=== PATIENT | male | born 1970 | race African-American/Black ===

== ENCOUNTER 2023-10-15 10:26 | Outpatient (AMB) | payer OTHER, SELFPAY ==
[2023-10-15 10:56] VITALS: BP 110/70; PULSE 92; BMI 35.5
--- NOTE | 2023-10-15 10:56 | HO.NEPHOV_ITS ---
HPI HPI Comments History of Present Illness Details Mr. Rwoe has end-stage renal disease and usually gets hemodialysis in [facility] every Saturday. His blood sugars are not optimally controlled. His blood pressure has been labile but better. His inter dialytic weight gain is better. He does not have any significant urine output. He has diastolic dysfunction. He denies any chest pain, shortness of breath, proximal nocturnal dyspnea, orthopnea or pedal edema. He has not lost any significant weight. He claims to be compliant with his medications. He had severe constipation in the past but is being regulated with laxatives. 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 He is keen to get into transplant list. [facility] Medical History (Updated 10/15/23 @ 13:21 by Colten Jaquez MD) Adenocarcinoma in adenomatous polyp Dialysis patient Surgical History (Updated 10/15/23 @ 10:59 by Lora Osorio MA) History of hand surgery History of abdominal surgery Social History (Updated 10/15/23 @ 10:59 by Lora Osorio MA) Alcohol intake: never Patient Tobacco Use Status: Never used Tobacco Use of substances other than those prescribed or required for medical reasons: No Vital Signs 10/15/23 10:56 Height 5 ft 11 in Weight 254 lb 6 oz BMI 35.5 BP 110/70 Blood Pressure Location Rt brachial Position Sitting Pulse 92 Pulse Source Pulse Oximeter Physical Exam Vital Signs: Last Vital Signs Pulse 92 10/15/23 10:56 BP 110/70 10/15/23 10:56 BMI result Body Mass Index 35.5 Const General: comfortable and no acute distress Orientation/consciousness: patient oriented x3 HEENT Head: Yes normocephalic Mouth: Normal oral and palatal mucosa present Eyes EOM: EOMs intact bilaterally Neck Neck: Yes supple Resp Auscultation: clear to auscultation bilaterally Cardio Jugular venous distension: no JVD Rate: regular rate GI Palpation (GI): Soft to palpation Auscultation: normal bowel sounds General: Yes no CVA tenderness Back/Spine/Pelvis Back: no CVA tenderness Skin General skin exam: no rashes or lesions noted Neuro General: patient oriented x3 and moves all extremities Extrem General: Yes no pedal edema Assessment & Plan Assessment & Plan (1) Anemia in chronic kidney disease: Code(s): N18.9 - Chronic kidney disease, unspecified; D63.1 - Anemia in chronic kidney disease Qualifiers: Chronic kidney disease stage: on chronic dialysis Qualified Code(s): N18.6 - End stage renal disease; D63.1 - Anemia in chronic kidney disease; Z99.2 - Dependence on renal dialysis (2) Dialysis patient: Code(s): Z99.2 - Dependence on renal dialysis (3) Secondary hyperparathyroidism (of renal origin): Code(s): N25.81 - Secondary hyperparathyroidism of renal origin (4) Hypertension: Code(s): I10 - Essential (primary) hypertension Qualifiers: Hypertension type: primary hypertension Qualified Code(s): I10 - Essential (primary) hypertension Plan Mr Rowe has end-stage renal disease and is currently on hemodialysis on Saturday. His dry weight has been brought down. He does not have any urine output. He should cut back on his liquid intake. He is in the dialytic weight gain has been acceptable. He needs to lose significant weight. His blood sugar control is suboptimal. Blood pressure control is better. He needs to be more active. He had an adenocarcinoma in a polyp in the transverse colon. He underwent surveillance colonoscopies which had been negative to date. He gets Mircera in the dialysis unit . He should take phosphorus binders 3 times a day with meals. He also is on activated vitamin-D. I have asked Babita Reardon greenhouse or nursery transplanter in [facility] to look at the status of his candidacy to get into [facility] transplant waiting list. All his questions and concerns were addressed. Time spent retrieving data, documentation and patient encounter 27 minutes. Coding Level of Care Code Est Pt Level 3 (15332) Diagnoses Anemia in chronic kidney disease, on chronic dialysis N18.6; D63.1; Z99.2 Chronic kidney disease stage: on chronic dialysis Dialysis patient Z99.2 Secondary hyperparathyroidism (of renal origin) N25.81 Primary hypertension I10 Hypertension type: primary hypertension
== END 2023-10-15 11:26 | disposition home or self-care (01) ==
PROVIDERS: PCP Internal Medicine; Visit Provider Internal Medicine Nephrology
DX: N18.6 End stage renal disease (principal); N25.81 Secondary hyperparathyroidism of renal origin; Z99.2 Dependence on renal dialysis; I12.0 Hypertensive chronic kidney disease with stage 5 chronic kidney disease or end stage renal disease; D63.1 Anemia in chronic kidney disease
CPT/HCPCS: 99213

== ENCOUNTER → 2023-10-15 10:26 | Outpatient (BNVA) | payer OTHER, SELFPAY | PROVIDERS: PCP Internal Medicine; Visit Provider Internal Medicine Nephrology | DX: I12.9 Hypertensive chronic kidney disease with stage 1 through stage 4 chronic kidney disease, or unspecified chronic kidney disease (principal); N18.6 End stage renal disease; N25.81 Secondary hyperparathyroidism of renal origin; D63.1 Anemia in chronic kidney disease; Z99.2 Dependence on renal dialysis | CPT/HCPCS: 99212 ==

== ENCOUNTER → 2023-11-18 | Outpatient (BNV) | payer OTHER, SELFPAY | PROVIDERS: PCP Internal Medicine; Visit Provider Internal Medicine Nephrology | DX: N18.6 End stage renal disease (principal) | CPT/HCPCS: 90961 ==

== ENCOUNTER → 2023-12-19 | Outpatient (BNV) | payer OTHER, SELFPAY | PROVIDERS: PCP Internal Medicine; Visit Provider Internal Medicine Nephrology | DX: N18.6 End stage renal disease (principal) | CPT/HCPCS: 90961 ==

== ENCOUNTER 2024-01-02 09:53 | Outpatient (AMB) | payer OTHER, SELFPAY ==
[2024-01-02 10:32] VITALS: BP 160/80; PULSE 86; O2SAT 98; BMI 36.0
--- NOTE | 2024-01-02 10:32 | HO.NEPHOV ---
HPI HPI Comments History of Present Illness Details Mr. Rowe has end-stage renal disease and usually gets hemodialysis in [facility] every Saturday. His blood sugars are not optimally controlled. His blood pressure has been labile but better. His inter dialytic weight gain is better. He does not have any significant urine output. He has diastolic dysfunction. He denies any chest pain, shortness of breath, proximal nocturnal dyspnea, orthopnea or pedal edema. He has not lost any significant weight. He claims to be compliant with his medications. He had severe constipation in the past but is being regulated with laxatives. 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 He is keen to get into transplant list. 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0 Const General: comfortable and no acute distress Orientation/consciousness: patient oriented x3 HEENT Head: Yes normocephalic Mouth: Normal oral and palatal mucosa present Eyes EOM: EOMs intact bilaterally Neck Neck: Yes supple Resp Auscultation: clear to auscultation bilaterally Cardio Jugular venous distension: no JVD Rate: regular rate GI Palpation (GI): Soft to palpation Auscultation: normal bowel sounds General: Yes no CVA tenderness Back/Spine/Pelvis Back: no CVA tenderness Skin General skin exam: no rashes or lesions noted Neuro General: patient oriented x3 and moves all extremities Extrem General: Yes no pedal edema Assessment & Plan Assessment & Plan (1) Dialysis patient: Code(s): Z99.2 - Dependence on renal dialysis (2) Anemia in chronic kidney disease: Code(s): N18.9 - Chronic kidney disease, unspecified; D63.1 - Anemia in chronic kidney disease Qualifiers: Chronic kidney disease stage: on chronic dialysis Qualified Code(s): N18.6 - End stage renal disease; D63.1 - Anemia in chronic kidney disease; Z99.2 - Dependence on renal dialysis (3) Secondary hyperparathyroidism (of renal origin): Code(s): N25.81 - Secondary hyperparathyroidism of renal origin (4) Hypertension: Code(s): I10 - Essential (primary) hypertension Qualifiers: Hypertension type: primary hypertension Qualified Code(s): I10 - Essential (primary) hypertension Plan Mr Rowe has end-stage renal disease and is currently on hemodialysis on Saturday. His dry weight has been brought down. His BP is at goal now. He does not have any urine output. He should cut back on his liquid intake. He is in the dialytic weight gain has been acceptable. He needs to lose significant weight. His blood sugar control is sub optimal. He needs to be more active. He had an adenocarcinoma in a polyp in the transverse colon. He underwent surveillance colonoscopies which had been negative to date. He gets Mircera in the dialysis unit . He should take phosphorus binders 3 times a day with meals. He also is on activated vitamin-D. I have asked Babita Reardon city wellness coordinator in [facility] to look at the status of his candidacy to get into [facility] transplant waiting list. All his questions and concerns were addressed. Coding Level of Care Code Est Pt Level 3 (08053) Diagnoses Dialysis patient Z99.2 Anemia in chronic kidney disease, on chronic dialysis N18.6; D63.1; Z99.2 Chronic kidney disease stage: on chronic dialysis Secondary hyperparathyroidism (of renal origin) N25.81 Primary hypertension I10 Hypertension type: primary hypertension Results Reviewed Nephrology Results: No Data to Display
== END 2024-01-02 10:50 | disposition home or self-care (01) ==
PROVIDERS: PCP Internal Medicine; Visit Provider Internal Medicine Nephrology
DX: Z99.2 Dependence on renal dialysis (principal); N18.6 End stage renal disease; D63.1 Anemia in chronic kidney disease; N25.81 Secondary hyperparathyroidism of renal origin; I12.0 Hypertensive chronic kidney disease with stage 5 chronic kidney disease or end stage renal disease
CPT/HCPCS: 99213

== ENCOUNTER → 2024-01-02 09:53 | Outpatient (BNVA) | payer OTHER, SELFPAY | PROVIDERS: PCP Internal Medicine; Visit Provider Internal Medicine Nephrology | DX: I12.9 Hypertensive chronic kidney disease with stage 1 through stage 4 chronic kidney disease, or unspecified chronic kidney disease (principal); N18.6 End stage renal disease; D63.1 Anemia in chronic kidney disease; N25.81 Secondary hyperparathyroidism of renal origin; Z99.2 Dependence on renal dialysis | CPT/HCPCS: 99212 ==

== ENCOUNTER → 2024-01-17 | Outpatient (BNV) | payer OTHER, SELFPAY | PROVIDERS: PCP Internal Medicine; Visit Provider Internal Medicine Nephrology | DX: N18.6 End stage renal disease (principal) | CPT/HCPCS: 90962 ==

== ENCOUNTER → 2024-02-17 | Outpatient (BNV) | payer OTHER, SELFPAY | PROVIDERS: PCP Internal Medicine; Visit Provider Internal Medicine Nephrology | DX: N18.6 End stage renal disease (principal) | CPT/HCPCS: 90962 ==

== ENCOUNTER → 2024-03-18 | Outpatient (BNV) | payer OTHER, SELFPAY | PROVIDERS: PCP Internal Medicine; Visit Provider Internal Medicine Nephrology | DX: N18.6 End stage renal disease (principal) | CPT/HCPCS: 90961 ==

== ENCOUNTER → 2024-04-18 | Outpatient (BNV) | payer OTHER, SELFPAY | PROVIDERS: PCP Internal Medicine; Visit Provider Internal Medicine Nephrology | DX: N18.6 End stage renal disease (principal) | CPT/HCPCS: 90961 ==